=== PATIENT | male | born 1995 | race Caucasian/White ===

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

== ENCOUNTER 2017-04-01 18:25 | Outpatient (CLI) | END 2017-04-01 18:26 | disposition left against medical advice (07) | LOC: AMBL 18:25 | PROVIDERS: ATTEND Internal Medicine | DX: Z04.1 Encounter for examination and observation following transport accident (principal); V43.92XA Unspecified car occupant injured in collision with other type car in traffic accident, initial encounter ==